=== PATIENT | male | born 1995 | race Caucasian/White ===

== ENCOUNTER 2021-10-28 03:55 | Emergency (ER) | payer BC ==
[2021-10-28] MEDS ORDERED: Octyl 2-Cyanoacrylate 1 APPLIC TUBE TOP ONE (04:55)
[2021-10-28] MEDS ORDERED: Ibuprofen 600 MG Tab PO ONE (05:01)
== END 2021-10-28 05:14 | disposition home or self-care (01) ==
LOC: MW.ED 03:55
DX: S61.011A Laceration without foreign body of right thumb without damage to nail, initial encounter (principal); W22.09XA Striking against other stationary object, initial encounter
CPT/HCPCS: 12001; 73130; 99283; A9270; 99282

== ENCOUNTER 2022-01-26 00:49 | Emergency (ER) | payer BC | END 2022-01-26 02:00 | disposition left against medical advice (07) | LOC: MW.ED 00:49 | DX: S61.212A Laceration without foreign body of right middle finger without damage to nail, initial encounter (principal); Z53.21 Procedure and treatment not carried out due to patient leaving prior to being seen by health care provider ==